=== PATIENT | male | born 1995 ===

== ENCOUNTER → 2023-10-27 12:50 | Outpatient (CLI) | payer OTHER, SELFPAY ==
--- NOTE | ~2023-10-27 | MR_ITS ---
EXAMINATION: MR lumbar spine wo/w con DATE: 10/27/2023 13:39 INDICATION: 2 months of right drop foot. Numbness in the left toes. TECHNIQUE: Magnetic resonance imaging (MRI) of the lumbar spine was performed without and with 15 mL Multihance intravenous contrast. Sequences included sagittal T2-weighted FSE, sagittal T2-weighted FS FSE, and sagittal and axial T1-weighted FSE. Postcontrast sequences included axial T2-weighted FSE, sagittal T1-weighted FSE, and axial and sagittal T1-weighted FS FSE. COMPARISON: None FINDINGS: Alignment is normal. Lumbar vertebral body heights are normal. There is mild likely physiologic anter ior wedging at T12. Small Schmorl's nodes at both sides of the T11-T12 disc space. Normal marrow sig nal. Disc heights are normal. The conus medullaris terminates at L2. There is normal signal in the ca udal spinal cord. Paravertebral soft tissues are unremarkable. No abnormally enhancing lesions identi fied. The following disc levels are specifically discussed: T12-L1: Disc is minimally bulging. There is no facet joint osteoarthritis. There is no neural foramin al stenosis. There is no central canal stenosis. L1-L2: Disc is minimally bulging. There is no facet joint osteoarthritis. There is no neural foramina l stenosis. There is no central canal stenosis. L2-L3: Disc is minimally bulging. There is no facet joint osteoarthritis. There is no neural foramina l stenosis. There is no central canal stenosis. L3-L4: Disc is mildly bulging. There is no facet joint osteoarthritis. There is mild bilateral neural foraminal stenosis. There is no central canal stenosis. L4-L5: Disc is mildly bulging. There is mild bilateral facet joint osteoarthritis. There is mild bila teral neural foraminal stenosis. There is no central canal stenosis. L5-S1: Disc is mildly bulging. There is mild bilateral facet joint osteoarthritis. There is mild bila teral neural foraminal stenosis. There is no central canal stenosis. IMPRESSION: 1. Minimal lumbar spondylosis with no central canal stenosis and with mild bilateral neural from sten osis at L3-L4, L4-L5 and L5-S1. Reviewed, dictated and finalized at location A. CONTR[employer] SPECIALIST IMPRESSION: 1. Minimal lumbar spondylosis with no central canal stenosis and with mild bila teral neural from stenosis at L3-L4, L4-L5 and L5-S1.
== END ==
DX: M21.371 Foot drop, right foot (principal)
CPT/HCPCS: 72158; A9577